=== PATIENT | male | born 1990 | race Caucasian/White ===

== ENCOUNTER 2019-09-30 18:21 | Emergency (ER) | payer MEDICARE, OTHER ==
[~2019-09-30] VITALS: Ht 180.3 cm; Wt 83.5 kg
[~2019-09-30 18:21] MED LIST: CIPRO500 MG PO; CORTISPORIN EAR10 M1 AU; FLEXERIL10 MG PO; FLUOXETINE HCL20 MG PO; SERTRALINE HCL100 MG PO; SINGULAIR10 MG PO; ULTRAM50 MG PO; VENTOLIN HFA18 GM INH; XANAX0.5 MG PO
[2019-09-30] MEDS ORDERED: VENTOLIN HFA18 GM INH (19:16)
[2019-09-30] MEDS ORDERED: PREDNISONE20 MG PO (19:16)
== END 2019-09-30 19:59 | disposition home or self-care (01) ==
LOC: ED 18:21
DX: J45.909 Unspecified asthma, uncomplicated (principal); F31.9 Bipolar disorder, unspecified; F90.9 Attention-deficit hyperactivity disorder, unspecified type; Z88.2 Allergy status to sulfonamides; Z79.899 Other long term (current) drug therapy
CPT/HCPCS: 99283; J7512

== ENCOUNTER 2020-05-22 16:39 | Emergency (ER) | payer MEDICARE, OTHER ==
[~2020-05-22] VITALS: Ht 180.3 cm; Wt 83.5 kg
[~2020-05-22 16:39] MED LIST changes: +PREDNISONE20 MG PO
[2020-05-22] MEDS ORDERED: CYCLOBENZAPRINE10 MG PO (18:02)
== END 2020-05-22 18:14 | disposition home or self-care (01) ==
LOC: ED 16:39
DX: M62.830 Muscle spasm of back (principal); J45.909 Unspecified asthma, uncomplicated; F31.9 Bipolar disorder, unspecified; F43.10 Post-traumatic stress disorder, unspecified; F90.9 Attention-deficit hyperactivity disorder, unspecified type; Z88.8 Allergy status to other drugs, medicaments and biological substances; Z88.2 Allergy status to sulfonamides; Z79.899 Other long term (current) drug therapy
CPT/HCPCS: 99283; A9270

== ENCOUNTER 2021-08-16 07:48 | Emergency (ER) | payer MEDICARE, OTHER ==
[~2021-08-16] VITALS: Ht 180.3 cm; Wt 83.5 kg
[~2021-08-16 07:48] MED LIST changes: +CYCLOBENZAPRINE10 MG PO
== END 2021-08-16 10:15 | disposition home or self-care (01) ==
LOC: ED 07:48
DX: U07.1 COVID-19 (principal); J45.909 Unspecified asthma, uncomplicated; F43.10 Post-traumatic stress disorder, unspecified; Z88.2 Allergy status to sulfonamides; Z88.8 Allergy status to other drugs, medicaments and biological substances; Z79.899 Other long term (current) drug therapy
CPT/HCPCS: 71045; 99284-25; C9803; U0003

== ENCOUNTER 2025-02-01 06:03 | Day surgery (SDC) | payer MEDICARE, OTHER ==
[2025-01-24 16:48] VITALS: BP 125/79
[~2025-02-01] VITALS: Ht 180.3 cm; Wt 98.0 kg
[~2025-02-01 06:03] MED LIST changes: +BUSPIRONE HCL5 MG PO; +DEXTROAMP-AMPHE10 MG PO; +LACTATED RINGER'S 1,000 ML IV SCH; +OMEGA-3 + VITA200 ML PO
[2025-02-01 06:18] VITALS: BP 149/86
[2025-02-01] MEDS ORDERED: GLYCOPYRROLATE1 MG PO (06:21)
[2025-02-01] MEDS ORDERED: SIMVASTATIN20 MG PO (06:21)
[2025-02-01] MEDS ORDERED: VITAMIN D325 MC2 PO (06:22)
[2025-02-01] MEDS ORDERED: propofoL 200 MG/20 ML VIAL ONE (06:47)
[2025-02-01] MEDS ORDERED: LIDOCAINE HCL 2% 5 ML SDV ONE (06:47)
[2025-02-01] MEDS ORDERED: LIDOCAINE HCL 1% 5 ML SDV INJ ONE (07:00)
[2025-02-01] MEDS ORDERED: IBLOOD GLUCOSE TEST STRIP 1 EA TEST VI PRN (07:00)
--- NOTE | 2025-02-01 07:48 | NUR ---
02/01/25 0748 Brenda Valenzuela 0737 PT TO PACU SLEEPING, PT TWITCHING AND SHAKING, O2 VIA MASK TURNED OFF UPON ARRIVAL TO PACU PT MAINTAINS SATS ABOVE 95% ON ROOM AIR. IV WAS COMPLETELY OUT OF PTS HAND WHEN HE ARRIVED TO PACU. NO NEW IV NEEDED PER WILFREDO GOMEZ.
[2025-02-01 08:15] VITALS: BP 136/93
--- NOTE | 2025-02-02 11:07 | OR ---
[facility] [address] [place], [place] [address] Signed DATE OF OPERATION: 02/01/2025 SURGEON: Jennifer Badillo DO PREOPERATIVE DIAGNOSIS: Screening for colon cancer. POSTOPERATIVE DIAGNOSES: 1. Screening for colon cancer with a sessile polyp at 30 cm. 2. Internal and external hemorrhoids. 3. Nonspecific colitis. PROCEDURE PERFORMED: Pancolonoscopy with biopsy of polyp at 30 cm. ANESTHESIA: IV sedation. ESTIMATED BLOOD LOSS: None. DRAINS: None. COMPLICATIONS: None. DESCRIPTION OF PROCEDURE: The patient was brought to the GI lab, placed in supine position. After induction of IV sedation, the patient was placed in the left lateral position anesthesia. Digital rectal exam was then performed, essentially unremarkable. The Olympus video colonoscope was then introduced into the rectum directing through the length of the sigmoid colon, descending colon, transverse colon, ascending colon, and to the cecum. The colon was then fully distended and general exploration was carried out. The cecum and ascending colon were essentially unremarkable. No intrinsic or extrinsic masses noted. Hepatic flexure was unremarkable. Scope was brought back into the transverse colon, it was essentially unremarkable. No internal or external masses were noted. Scope was passed through the splenic flexure to the descending colon. No intrinsic or extrinsic masses were noted. Some nonspecific colitis was noted no bleeding was appreciated. Scope was brought back into the sigmoid colon. At Electronically Signed By: JENNIFER BADILLO DO 02/02/25 1107 PATIENT NAME: CANDACE MOORE OPERATIVE REPORT DATE OF : [birth year] REPORT #: [id number] PHYSICIAN: JENNIFER BADILLO DO PCP: NO PRIMARY CARE PHYSICIAN REPORT IS CONFIDENTIAL AND NOT TO BE RELEASED WITHOUT AUTHORIZATION [address], [place] [address] Signed approximately 30 cm, a flat sessile polyp was identified. Multiple biopsies were taken, passed off the field for pathologic review. Satisfactory hemostasis was maintained. The rest of the sigmoid colon was essentially unremarkable. Scope was then brought back to the rectosigmoid. Some internal and external hemorrhoids were appreciated, but bleeding sites were noted. The remainder of the exam was unremarkable. The scope was withdrawn. The patient tolerated the procedure well, went to recovery room in satisfactory condition. Jennifer Badillo DO RS/MODL /[id number] Copies: ~ Electronically Signed By: JENNIFER BADILLO DO 02/02/25 1107 PATIENT NAME: CANDACE MOORE OPERATIVE REPORT DATE OF : [birth year] REPORT #: [id number] PHYSICIAN: JENNIFER BADILLO DO PCP: NO PRIMARY CARE PHYSICIAN REPORT IS CONFIDENTIAL AND NOT TO BE RELEASED WITHOUT AUTHORIZATION
--- NOTE | 2025-02-02 14:19 | PATH ---
[facility] [address] [facility] [place], [place] [address] Signed THIS IS AN AMENDED REPORT SPECIMEN(S): A COLON POLYP, 30 CM SPECIMEN SOURCE: A. COLON POLYP, 30 CM CLINICAL HISTORY: History of rectal bleeding. Postop: Polyp at 30 cm nonspecific colitis; internal and external hemorrhoids REASON FOR AMENDMENT: This amended report is issued to correct the copy to provider and delivery location. Originally reported as Unknown Clinician; amended to Yvon Dey DO at [facility]. The diagnostic results remain unchanged. (02/02/2025) FINAL PATHOLOGIC DIAGNOSIS: Colon, 30 cm, polypectomy - Colonic mucosa with no significant pathologic changes BRP MICROSCOPIC EXAMINATION: Histologic sections of all submitted blocks are examined by light microscopy. These findings, together with the gross examination, support the pathologic diagnosis. GROSS DESCRIPTION: The specimen, labeled and designated "Andrea, colon polyp at 30 cm," is received in formalin and consists of three watkins soft tissue fragments, ranging from 0.1 cm. Entirely submitted in (A1). JS (under the direct supervision of a pathologist) The Gross Description was prepared using a voice recognition system. The report was reviewed for accuracy; however, sound-alike word errors, addition and/or deletions may occur. If there is any question about this report, please contact Client Services. ADDITIONAL NOTES: Immunohistochemical and/or in situ hybridization studies if performed in this case included appropriate positive controls that reacted as expected. This test was developed and its performance PATIENT NAME: CANDACE MOORE PATHOLOGY DATE OF : [birth year] REPORT #: [id number] PHYSICIAN: MEGAN MARQUEZ PCP: NO PRIMARY CARE PHYSICIAN REPORT IS CONFIDENTIAL AND NOT TO BE RELEASED WITHOUT AUTHORIZATION [facility] [address] [place] [id number] Signed characteristics determined by [facility] [employer]. It has not been cleared or approved by the U.S. Food and Drug Administration. The FDA has determined that such clearance or approval is not necessary. This test is used for clinical purposes. It should not be regarded as investigational or for research. [facility] [employer] is certified under the Clinical Laboratory Improvement Amendments of 1988 (CLIA) as qualified to perform high complexity clinical laboratory testing. PERFORMING LABORATORY: Technical component was performed by [employer] [employer], [address] [place] [id number] (CLIA# [id number]). Professional interpretation was performed by [facility], [address] [place] [id number] (CLIA#: [id number]). Diagnostician: Benjie Pantoja MD Pathologist Electronically Signed 02/02/2025 Copies: ~ PATIENT NAME: CANDACE MOORE PATHOLOGY DATE OF : [birth year] REPORT #: [id number] PHYSICIAN: [facility] PCP: NO PRIMARY CARE PHYSICIAN REPORT IS CONFIDENTIAL AND NOT TO BE RELEASED WITHOUT AUTHORIZATION
== END 2025-02-01 08:20 | disposition home or self-care (01) ==
LOC: DS 06:03
PROVIDERS: ATTEND Surgery
PROC: 0DBN8ZZ Excision of Sigmoid Colon, Via Natural or Artificial Opening Endoscopic (ICD-10-PCS; principal; 2025-02-01 07:30)
DX: Z12.11 Encounter for screening for malignant neoplasm of colon (principal); K64.8 Other hemorrhoids; K64.4 Residual hemorrhoidal skin tags; K52.9 Noninfective gastroenteritis and colitis, unspecified; K63.5 Polyp of colon; F90.9 Attention-deficit hyperactivity disorder, unspecified type; F31.9 Bipolar disorder, unspecified; J45.909 Unspecified asthma, uncomplicated; F95.2 Tourette's disorder; Z79.899 Other long term (current) drug therapy; Z88.8 Allergy status to other drugs, medicaments and biological substances
CPT/HCPCS: 00811; J2003; J2704; J7121